=== PATIENT | male | born 1965 | race Caucasian/White ===

== ENCOUNTER → 2025-02-12 13:25 | Outpatient (BNVA) | payer OTHER, SELFPAY | PROVIDERS: PCP Family Medicine; Visit Provider Internal Medicine | DX: R07.9 Chest pain, unspecified (principal) | CPT/HCPCS: 93005 ==

== ENCOUNTER 2025-03-07 05:55 | Day surgery (SDC) | payer OTHER, SELFPAY ==
--- NOTE | 2025-03-07 06:05 | W.PM.OPSFHP ---
Same Day Surgery H&P Indication for Procedure/HPI DATE OF PROCEDURE: March 07, 2025 CHIEF COMPLAINT/INDICATIONFOR SURGICAL PROCEDURE: need for screening colonoscopy PREOP DIAGNOSIS: need for screening colonoscopy PLANNED PROCEDURE: Operation Date: 03/07/25 07:00 Proposed Procedures p Colonoscopy [id number] G0105 Z85.038 Z12.11(Not Applicable) - Hermes Alvarez MD Medications/Allergies* Home Medications ?Medication ?Instructions ?Recorded ?Confirmed ?Type aspirin 81 mg tablet,delayed 81 mg PO DAILY 11/19/24 03/04/25 History release (Adult Low Dose Aspirin) metoprolol tartrate 25 mg tablet 12.5 mg PO BID 11/19/24 03/04/25 History omeprazole 20 mg capsule,delayed 20 mg PO DAILY 11/19/24 03/04/25 History release sotalol 80 mg tablet (Betapace) 80 mg PO BID 11/19/24 03/04/25 History coenzyme Q10 10 mg capsule (Co 10 mg PO DAILY 02/12/25 03/04/25 History Q-10) Allergies/Adverse Reactions Allergy/AdvReac Type Severity Reaction Status Date / Time oxycodone (From OxyContin) Allergy Mild ADR-Itching Verified 03/04/25 09:19 Pertinent History/Comorbid Conditions* Medical History (Updated 02/12/25 @ 14:26 by Krishna De La Cruz M.D) GERD with stricture without esophagitis Mitral valve prolapse Surgical History (Updated 02/12/25 @ 14:26 by Krishna De La Cruz M.D) H/O mitral valve repair Family History (Updated 02/12/25 @ 13:50 by Wendy Echeverria LPN) Diabetes Mother Cancer Father Hypertension Mother Father Denies family history of CAD (coronary artery disease) Social History Smoking and tobacco/nicotine status: former use of tobacco/nicotine Alcohol intake: current Alcohol intake frequency: holidays/special occasions only Substance/Drug Use: never Pertinent Exam Findings alert, oriented x 3, clear to auscultation bilaterally and regular rate & rhythm Recommendations Surgery/Procedure today Coding Level of Care Code Acute Code for Chg Reg
[2025-03-07 06:07] VITALS: BP 146/105; PULSE 68; RESP 16; TEMP 36.2; O2SAT 95; BMI 27.3
[2025-03-07] MEDS: sodium chloride 0.9% 1,000 ML 15 ML IV (06:15)
--- NOTE | 2025-03-07 06:48 | ANES.PREANE2 ---
Pre-Anesthetic Assessment Height/Weight: Height 1.73 m Weight 81.647 kg Temp Pulse Resp BP Pulse Ox O2 Del Method 97.2 F L 68 16 146/105 95 Room Air 03/07/25 06:07 03/07/25 06:07 03/07/25 06:07 03/07/25 06:07 03/07/25 06:07 03/07/25 06:07 Preop Diagnosis: need for screening colonoscopy Operation Date: 03/07/25 07:00 Proposed Procedures p Colonoscopy [id number] G0105 Z85.038 Z12.11(Not Applicable) - Hermes Alvarez MD Familial anesthetic complications: none Was Beta Leo taken within 24 hours: Yes Was Clonidine taken within 24 hours: N/A Last intake: Intake Last Liquid Date 03/06/25 Last Liquid Time 20:00 Last Solid Date 03/05/25 Last Solid Time 17:00 Social Alcohol and No alcohol beer occasional Exam alert, oriented x 3, clear to auscultation bilaterally and regular rate & rhythm Airway Cervical ROM: within normal limits Mallampati: Class II Dentition: full Pulmonary None reported CV/HEM Atrial Fibrillation mitral valve replaced on 2022, afib has since resolved, takes baby aspirin and metoprolol. >4mets great activity tolerance. None reported Hepatic None reported GI well controlled with omeprazole Metabolic None reported Musc/skel Lower Back Pain Neuropsych None reported Anesthetic Plan ASA status: 3 Anesthesia: MAC Risk of > 500 ml blood loss (7ml/kg in children): No Medications/Allergies Home Medications ?Medication ?Instructions ?Recorded ?Confirmed ?Last Taken ?Type aspirin 81 mg tablet,delayed 81 mg PO DAILY 11/19/24 03/04/25 03/06/25 History release (Adult Low Dose Aspirin) diclofenac sodium 75 mg 75 mg PO BID PRN pain #20 tabs 11/19/24 03/04/25 03/06/25 Rx tablet,delayed release metoprolol tartrate 25 mg tablet 12.5 mg PO BID 11/19/24 03/04/25 03/07/25 History omeprazole 20 mg capsule,delayed 20 mg PO DAILY 11/19/24 03/04/25 03/06/25 History release sotalol 80 mg tablet (Betapace) 80 mg PO BID 11/19/24 03/04/25 03/07/25 History coenzyme Q10 10 mg capsule (Co 10 mg PO DAILY 02/12/25 03/04/25 03/06/25 History Q-10) Allergies Allergy/AdvReac Type Severity Reaction Status Date / Time oxycodone (From OxyContin) Allergy Mild ADR-Itching Verified 03/04/25 09:19 [facility] Anesthesia Medical History (Updated 02/12/25 @ 14:26 by Krishna De La Cruz M.D) GERD with stricture without esophagitis Mitral valve prolapse Surgical History (Updated 02/12/25 @ 14:26 by Krishna De La Cruz M.D) H/O mitral valve repair Family History Mother Diabetes Hypertension Father Cancer Hypertension Denies family history of CAD (coronary artery disease) Social History Smoking and tobacco/nicotine status: former use of tobacco/nicotine Alcohol intake: current Alcohol intake frequency: holidays/special occasions only Substance/Drug Use: never
[2025-03-07 07:24] VITALS: BP 102/64; PULSE 60; RESP 16; TEMP 36.2; O2SAT 95
[2025-03-07 07:38] VITALS: BP 103/68; PULSE 63; RESP 17; O2SAT 94
[2025-03-07 08:00] VITALS: BP 110/69; PULSE 61; RESP 16; O2SAT 95
--- NOTE | 2025-03-07 08:15 | ANE.PACU2 ---
Inpatient post-anesthesia follow up: Airway intact: Yes Vital signs: Temperature 97.1 F Pulse Rate 61 Respiratory Rate 16 Blood Pressure 110/69 Pulse Oximetry 95 Oxygen Delivery Me thod Room Air Oxygen Flow Rate Fraction of Inspir ed Oxygen Hydration adequate: Yes Nausea and vomiting: No Pain level: 1 Mental status: Baseline
== END 2025-03-07 08:17 | disposition home or self-care (01) ==
PROVIDERS: PCP Family Medicine; Visit Provider Surgery
PROC: 0DJD8ZZ Inspection of Lower Intestinal Tract, Via Natural or Artificial Opening Endoscopic (ICD-10-PCS; CPT 45378; principal; 2025-03-07 07:00)
DX: Z12.11 Encounter for screening for malignant neoplasm of colon (principal); K21.9 Gastro-esophageal reflux disease without esophagitis; I48.91 Unspecified atrial fibrillation; Z79.82 Long term (current) use of aspirin; Z79.899 Other long term (current) drug therapy; Z88.5 Allergy status to narcotic agent; Z95.2 Presence of prosthetic heart valve
CPT/HCPCS: 45380; 88305; J2704; J7030; J9999

== ENCOUNTER 2025-03-21 14:12 | Outpatient (CLI) | payer OTHER, SELFPAY ==
--- NOTE | 2025-03-21 14:15 | USCV_ITS ---
Severino Poon Age: 60 Gender: M : 1965 Exam Date: 03/21/2025 14:53 Ordering Phys: Krishna De La Cruz M.D ([email or web address]) Technologist: ANTHONY [place]am [place] [facility] [place]ication: CP, SoB BP: 144 / 100 HR: 65 Rhythm: Sinus Technical Quality: Adequate MEASUREMENTS (Male / Female) Normal Values 2D ECHO LV Diastolic Diameter PLAX 5.6 cm 4.2 - 5.9 / 3.9 - 5.3 cm IVS Diastolic Thickness 0.9 cm 0.6 - 1.0 / 0.6 - 0.9 cm IVS Systolic Thickness 1.7 cm LVPW Diastolic Thickness 0.9 cm 0.6 - 1.0 / 0.6 - 0.9 cm LVPW Systolic Thickness 1.4 cm LVOT Diameter 2.0 cm LV Ejection Fraction 2D Teich 60.6 % LV Ejection Fraction MOD 4C 50.4 % LV Ejection Fraction MOD 2C 54.8 % LV Ejection Fraction 2C AL 55.6 % LA Diameter 4.4 cm RA Systolic Volume 4C AL 36.1 ml RA Systolic Volume 4C MOD 35.1 ml Aorta at Sinotubular Diameter 3.3 cm IVC Diameter 2.9 cm M-MODE LA Ao Ratio MM 2.0 AV Cusp Separation MM 1.3 cm DOPPLER AV Peak Velocity 109.0 cm/s LVOT Peak Velocity 75.0 cm/s AV Area Cont Eq vti 2.3 cm squared AV Area Cont Eq pk 2.1 cm squared MV Peak Velocity 117.0 cm/s MV Area PHT 3.0 cm squared Mitral E to A Ratio 1.7 TR Peak Velocity 107.0 cm/s TR Peak Gradient 4.6 mmHg TV Peak E Velocity 59.0 cm/s PV Peak Velocity 91.0 cm/s FINDINGS Left Ventricle Left ventricle is normal size. LV systolic function is normal with EF 55 to 60%. No regional wall motion abnormalities are seen. Right Ventricle Normal in size and function Right Atrium Normal in size Left Atrium Normal in size Mitral Valve Aortic Valve Structurally normal aortic valve. No significant stenosis or regurgtation. Tricuspid Valve Insufficient TR jet to calculate RVSP Pulmonic Valve Not well visualized Pericardium Normal Aorta Ascending aorta is dilated with diameter of 3.62cm IVC Appears to be dilated CONCLUSIONS LV systolic function is normal with EF of 55-60% Trace mitral regurgitation Ascending aorta is dilated with diameter of 3.62cm No comparison studies are available Krishna De La Cruz MD (Electronically Signed) Final Date: 11 April 2025 10:13 S
== END 2025-03-21 14:13 | disposition home or self-care (01) ==
PROVIDERS: PCP Family Medicine; Visit Provider Internal Medicine
DX: I34.1 Nonrheumatic mitral (valve) prolapse (principal); I77.810 Thoracic aortic ectasia
CPT/HCPCS: 93306

== ENCOUNTER 2025-03-22 06:34 | Outpatient (CLI) | payer OTHER, SELFPAY ==
[2025-03-22 08:08] LABS: Chol HDL Ratio 4.16 mg/dL (1.0-5.00); Cholesterol 233 mg/dL (0-200); HDL Cholesterol 56 mg/dL (60-100); LDL Cholesterol Calculated 146 mg/dL (50-129); LDL HDL Ratio 2.61 RATIO (0.00-3.22); Triglycerides 157 mg/dL (0-150)
== END 2025-03-22 06:35 | disposition home or self-care (01) ==
PROVIDERS: PCP Family Medicine; Visit Provider Internal Medicine
DX: E78.5 Hyperlipidemia, unspecified (principal)
CPT/HCPCS: 36415; 80061